=== PATIENT | female | born 1995 | race Caucasian/White ===

== ENCOUNTER → 2016-12-20 | Outpatient (CLI) | payer OTHER ==
[~2016-12-20] VITALS: Ht 157.5 cm; Wt 53.1 kg
[~2016-12-20] MED LIST: DICLEGIS DR 101 EACH PO; ENDOCET 5-3251 EACH PO; FALMINA1 EACH PO; IBUPROFEN800 MG PO; KEFLEX500 MG PO; MACROBID100 MG PO; PROZAC20 MG PO; VITAMEDMD REDI1.4 MG PO; ZANTAC150 MG PO; ZOFRAN ODT4 MG PO; ZOLOFT25 MG PO
== END | disposition home or self-care (01) ==
LOC: AMB 07:30
PROC: 0DB98ZX Excision of Duodenum, Via Natural or Artificial Opening Endoscopic, Diagnostic (ICD-10-PCS; principal; 2016-12-20)
PROC: 0DB68ZX Excision of Stomach, Via Natural or Artificial Opening Endoscopic, Diagnostic (ICD-10-PCS; 2016-12-20)
DX: K29.50 Unspecified chronic gastritis without bleeding (principal); R10.13 Epigastric pain; R14.0 Abdominal distension (gaseous); R11.0 Nausea; F17.200 Nicotine dependence, unspecified, uncomplicated; Z88.2 Allergy status to sulfonamides
CPT/HCPCS: 88305; 88342 TC

== ENCOUNTER 2017-01-31 11:35 | Emergency (ER) | payer OTHER ==
[~2017-01-31] VITALS: Ht 157.5 cm; Wt 54.6 kg
[2017-01-31 12:10] LABS: HEMATOCRIT 42.2 % (36.0-46.0); MCH 27.8 PG (29.0-34.0); MCHC 32.5 G/DL (30.0-36.0); MCV 85.8 FL (83-99); MEAN PLAT.VOLUME 9.3 uM^3 (9.5-12.4); PLATELET COUNT 287 K/uL (156-360); RBC DIS.WIDTH-CV 14.1 % (11.8-14.6); RBC DIS.WIDTH-SD 43.7 % (39-53); RED BLOOD COUNT 4.92 M/uL (3.80-5.20); WHITE BLOOD COUNT 6.5 K/uL (4.1-10.2)
[2017-01-31 12:24] LABS: CHLORIDE 106 mEq/L (99-109); SODIUM 140 mEq/L (136-147)
[2017-01-31 12:26] LABS: GLUCOSE 71 mg/dL (70-99)
[2017-01-31 12:27] LABS: ANION GAP 9 MEQ/L (2-14)
[2017-01-31 12:30] LABS: GFR ESTIMATE (CALCULATED) > 59 mL/min/; UREA NITROGEN (BUN) 12 mg/dL (9-23)
[2017-01-31] MEDS ORDERED: ATARAX10 MG PO (14:35)
[2017-01-31] MEDS ORDERED: CELEXA20 MG PO (14:36)
[2017-01-31 14:50] LABS: QUANTITATIVE HCG < 4.0 MIU/ML
[2017-01-31 14:50] LABS: ADD MIUA? YES; BILIRUBIN NEGATIVE; BLOOD NEGATIVE; COLOR YELLOW ((YELLOW)); GLUCOSE (STRIP) NEGATIVE; KETONES NEGATIVE; LEUKOCYTES NEGATIVE; NITRITE NEGATIVE; PROTEIN (STRIP) NEGATIVE; SPECIFIC GRAVITY 1.023 (1.000-1.030)
[2017-01-31 14:58] LABS: BACTERIA NONE SEEN /HPF; EPITHELIAL CELLS 4+ /HPF; MUCUS TRACE /LPF; WHITE BLOOD CELLS 0-5 /HPF (0-5)
[2017-01-31 15:28] LABS: TROP-I INTERPRETATION NEGATIVE; TROPONIN-I < 0.01 ng/mL (0.0-0.30)
[2017-01-31 16:04] LABS: TROP-I INTERPRETATION NEGATIVE; TROPONIN-I < 0.01 ng/mL (0.0-0.30)
[2017-01-31] MEDS ORDERED: ANTIVERT12.5 MG PO (16:07)
[2017-01-31 16:16] VITALS: BP 124/78
== END 2017-01-31 16:17 | disposition home or self-care (01) ==
LOC: EME 11:35
PROVIDERS: Nurse Practitioner Family
DX: R07.89 Other chest pain (principal); R42 Dizziness and giddiness; R00.1 Bradycardia, unspecified; H61.22 Impacted cerumen, left ear; F17.200 Nicotine dependence, unspecified, uncomplicated
CPT/HCPCS: 70450; 80048; 81003; 84484; 84702; 85027; 93005; 99281; 99284